=== PATIENT | female | born 1985 | race American Indian/Alaskan Native ===

== ENCOUNTER 2019-03-22 08:38 | Emergency (ER) | payer BC ==
--- NOTE | 2019-03-22 10:41 | Emergency Department Report ---
Chief Complaint: Extremity Injury, Lower Stated Complaint: RT FOOT/TOE PAIN SORE Time Seen by Provider: 03/22/19 10:35 - HPI History of Present Illness: Ms. Mead has ulcer in between her toes. I recommended outpatient evluation by behavioral health care manager. dc'd with referral. MSE performed and completed. No emergent medical condition exists which needs further treatment and evaluation. - Exam Vital Signs: Vital Signs 03/22/19 09:14 Temperature 98.5 F Pulse Rate 95 H Respiratory 16 Rate Blood Pressure 157/107 O2 Sat by Pulse 100 Oximetry MSE screening note: Focused history and physical exam performed. Due to findings the following was ordered: ED Disposition for MSE Clinical Impression: Foot ulcer, Tinea pedis Disposition: Z MED SCREENING EXAM-LEFT Is pt being admited?: No Does the pt Need Aspirin: No Condition: Stable Instructions: Tinea Pedis (ED) Additional Instructions: Use Lamisil as discussed Referrals: ALEXANDER SIERRA DPM [Staff Physician] - 3-5 Days JODEE BARNETT MD [Staff Physician] - 3-5 Days Forms: Work/School Release Form(ED)
[2019-03-22] MEDS ORDERED: TRIPLE ANTIBIOTIC TP ONE (10:44)
[2019-03-22 10:50] VITALS: BP 150/100
[2019-03-22] MEDS ORDERED: ANTIBIOTIC OINT TP ONE (11:37)
== END 2019-03-22 10:50 | disposition left against medical advice (07) ==
LOC: ED 08:38
DX: L97.519 Non-pressure chronic ulcer of other part of right foot with unspecified severity (principal); B35.3 Tinea pedis
CPT/HCPCS: 99282; A6250

== ENCOUNTER 2019-09-28 19:21 | Emergency (ER) | payer BC ==
--- NOTE | 2019-09-28 22:53 | XRay Report ---
CHEST 2 VIEWS INDICATION / CLINICAL INFORMATION: cough. COMPARISON: None available. FINDINGS: SUPPORT DEVICES: None. HEART / MEDIASTINUM: No significant abnormality. LUNGS / PLEURA: No significant pulmonary or pleural abnormality. No pneumothorax. ADDITIONAL FINDINGS: No significant additional findings. IMPRESSION: No acute finding. Signer Name: Milton Hay MD Signed: 09/28/2019 10:48 PM Workstation Name: [id number]
[2019-09-29] MEDS ORDERED: BENZONATATE 100 MG CAP PO ONE (00:41)
--- NOTE | 2019-09-29 01:10 | Emergency Department Report ---
Minor Respiratory - HPI Chief Complaint: Upper Respiratory Infection Stated Complaint: COUGH/NOSE BLEED Time Seen by Provider: 09/28/19 23:55 Duration: 3 Days Severity: mild Minor Respiratory: Yes Rhinorrhea, Yes Able to Tolerate Fluids, Yes Cough, Yes Fever, No Sore Throat, No Ear Pain, No Sick Contacts, No Hemoptysis, No Chest Pain, No Shortness of Breath Other History: This is a 34-year-old -[place] female who presents to the emergency room with cough and body aches for 3 days. Patient states she is taken Tylenol and TheraFlu with no change in symptoms. Reports worsening cough during the day and resolves when she falls asleep at night. Denies prior medical history. ED Review of Systems ROS: Stated complaint: COUGH/NOSE BLEED Other details as noted in HPI Constitutional: chills, fever ENT: congestion. denies: ear pain, throat pain Respiratory: cough. denies: shortness of breath, wheezing Cardiovascular: denies: chest pain, palpitations Gastrointestinal: denies: abdominal pain, nausea, diarrhea Musculoskeletal: myalgia. denies: back pain, joint swelling, arthralgia Skin: denies: rash, lesions Neurological: denies: headache, weakness, paresthesias Psychiatric: denies: anxiety, depression ED Past Medical Hx - Past Medical History Previous Medical History?: No Additional medical history: Obesity - Surgical History Past Surgical History?: Yes Additional Surgical History: x 2. right foot surgery - Social History Smoking Status: Never Smoker Substance Use Type: None - Medications Home Medications: Home Medications Medication Instructions Recorded Confirmed Last Taken Type Amoxicillin 500 mg PO BID #20 capsule 07/20/18 Unknown Rx methylPREDNISolone [Medrol] 4 mg PO DAILY #1 tab.ds.pk 07/20/18 Unknown Rx Benzonatate [Tessalon Perles] 100 mg PO Q8HR PRN #20 capsule 09/29/19 Unknown Rx Cetirizine HCl [ZyrTEC 10mg cap] 10 mg PO DAILY #30 capsule 09/29/19 Unknown Rx Fluticasone [Flonase] 1 spray NS QDAY #1 bottle 09/29/19 Unknown Rx Minor Respiratory Exam - Exam General: Vital signs noted. No distress. Alert and acting appropriately. HEENT: Yes Pharyngeal Erythema (Erythematous posterior pharynx, uvula midline), Yes Moist Mucous Membranes, Yes Rhinorrhea (Turbinates congested with clear discharge), No Pharyngeal Exudates, No Conjuctival Injection, No Frontal Tenderness, No Maxillary Tenderness Ear: Neither TM Bulge, Neither TM Erythema, Neither EAC Pain, Neither EAC Discharge Neck: Yes Supple, No Adenopathy Lungs: Yes Good Air Exchange, No Wheezes, No Ronchi, No Stridor, No Cough, No Labored Respirations, No Retractions, No Use of Accessory Muscles, No Other Abnormal Lung Sounds Heart: Yes Regular, No Murmur Abdomen: Yes Normal Bowel Sounds, No Tenderness, No Peritoneal Signs Skin: No Rash, No Edema Neurologic: Alert and oriented, no deficits. Musculoskeletal: Unremarkable. ED Course Vital Signs 09/28/19 22:13 Temperature 99.3 F Pulse Rate 104 H Respiratory 20 Rate Blood Pressure 145/108 O2 Sat by Pulse 100 Oximetry Vital Signs 09/28/19 09/29/19 22:13 01:18 Temperature 99.3 F 98.7 F Pulse Rate 104 H 97 H Respiratory 20 18 Rate Blood Pressure 145/108 Blood Pressure 126/88 [Left] O2 Sat by Pulse 100 100 Oximetry ED Medical Decision Making - Radiology Data Radiology results: report reviewed CHEST 2 VIEWS INDICATION / CLINICAL INFORMATION: cough. COMPARISON: None available. FINDINGS: SUPPORT DEVICES: None. HEART / MEDIASTINUM: No significant abnormality. LUNGS / PLEURA: No significant pulmonary or pleural abnormality. No pneumothorax. ADDITIONAL FINDINGS: No significant additional findings. IMPRESSION: No acute finding. - Medical Decision Making This is a 34-year-old -[place] female that presents to the emergency room with cough and body aches for 3 days. Vitals are stable and patient in no acute distress. Chest xray has been obtained and negative for acute cardiopulmonary findings. Labs deferred at this time. Patient will be treated for upper respiratory infection with symptomatic medication. Start benzonatate, Flonase, and antihistamines. Discharged home stable. Follow up with Primary Care Provider in 2-3 days. Patient given strict return instructions. Critical care attestation.: If time is entered above; I have spent that time in minutes in the direct care of this critically ill patient, excluding procedure time. ED Disposition Clinical Impression: Cough Upper respiratory infection Qualifiers: URI type: acute nasopharyngitis (common cold) Qualified Code(s): J00 - Acute nasopharyngitis [common cold] Disposition: TO HOME OR SELFCARE Is pt being admited?: No Condition: Stable Instructions: Upper Respiratory Infection (ED), Cold Symptoms (ED) Additional Instructions: Increase fluid intake and rest. Wash hands frequently. Continue taking Tylenol or ibuprofen to control fever. F/U with Primary Care Provider. Return to ER if fever, SOB, or difficulty breathing after 48 hours of supportive care. Prescriptions: Fluticasone [Flonase] 1 spray NS QDAY #1 bottle Benzonatate [Tessalon Perles] 100 mg PO Q8HR PRN #20 capsule PRN Reason: Cough Cetirizine HCl [ZyrTEC 10mg cap] 10 mg PO DAILY #30 capsule Referrals: EUN ALMENDAREZ MD [Primary Care Provider] - 3-5 Days [facility] [Outside] - 3-5 Days [facility] [Outside] - 3-5 Days Forms: Work/School Release Form(ED) Time of Disposition: 01:18
[2019-09-29 01:19] VITALS: BP 126/88
== END 2019-09-29 01:24 | disposition home or self-care (01) ==
LOC: ED 19:21
DX: J06.9 Acute upper respiratory infection, unspecified (principal); R52 Pain, unspecified; E66.9 Obesity, unspecified; Z68.42 Body mass index [BMI] 45.0-49.9, adult; Z98.890 Other specified postprocedural states; Z79.899 Other long term (current) drug therapy
CPT/HCPCS: 71046

== ENCOUNTER 2020-09-24 19:11 | Emergency (ER) | payer SELFPAY ==
--- NOTE | 2020-09-24 20:21 | Emergency Department Report ---
ED Headache HPI - General Chief Complaint: Headache Stated Complaint: HEADACHE FOR 5 DAYS Time Seen by Provider: 09/24/20 19:59 - History of Present Illness Initial Comments: 35-year-old female with past medical history of hypertension presents emerge department complaining of a 5-day history of a nonprogressing but nonresolving headache with association photophobia and phonophobia. She reports no known scotomas preceding the preceding the headache but laal-jhm-lykeand treatments has not been successful. Timing/Duration: constant, other (For the last 5 days) Quality: moderate, severe Head Injury Location: frontal, parietal Recent Head Trauma: occasional headaches Modifying Factors: improves with: exposure to light Associated Symptoms: denies: facial pain, fever/chills, flushing, nausea/vomiting, nasal congestion, nasal drainage, numbness in legs/feet, sinus infection, stiff neck, vision changes Allergies/Adverse Reactions: Allergies No Known Allergies Allergy (Verified 08/25/14 08:09) Home Medications: Ambulatory Orders Amoxicillin 500 mg PO BID #20 capsule 07/20/18 methylPREDNISolone [Medrol] 4 mg PO DAILY #1 tab.ds.pk 07/20/18 Benzonatate [Tessalon Perles] 100 mg PO Q8HR PRN #20 capsule 09/29/19 Cetirizine HCl [ZyrTEC 10mg cap] 10 mg PO DAILY #30 capsule 09/29/19 Fluticasone [Flonase] 1 spray NS QDAY #1 bottle 09/29/19 ED Review of Systems ROS: Stated complaint: HEADACHE FOR 5 DAYS Other details as noted in HPI Comment: All other systems reviewed and negative ED Past Medical Hx - Past Medical History Previous Medical History?: No Additional medical history: Obesity - Surgical History Past Surgical History?: Yes Additional Surgical History: x 2. right foot surgery - Social History Smoking Status: Never Smoker Substance Use Type: None - Medications Home Medications: Home Medications Medication Instructions Recorded Confirmed Last Taken Type Amoxicillin 500 mg PO BID #20 capsule 07/20/18 Unknown Rx methylPREDNISolone [Medrol] 4 mg PO DAILY #1 tab.ds.pk 07/20/18 Unknown Rx Benzonatate [Tessalon Perles] 100 mg PO Q8HR PRN #20 capsule 09/29/19 Unknown Rx Cetirizine HCl [ZyrTEC 10mg cap] 10 mg PO DAILY #30 capsule 09/29/19 Unknown Rx Fluticasone [Flonase] 1 spray NS QDAY #1 bottle 09/29/19 Unknown Rx ED Physical Exam - General Limitations: No Limitations General appearance: alert, in no apparent distress - Head Head exam: Present: atraumatic, normocephalic - Eye Eye exam: Present: normal appearance, PERRL, EOMI. Absent: nystagmus Pupils: Present: other (Negative funduscopic examination) - ENT ENT exam: Present: normal exam, normal orophraynx, mucous membranes moist - Neck Neck exam: Present: normal inspection, full ROM. Absent: tenderness, meningismus, lymphadenopathy - Respiratory Respiratory exam: Present: normal lung sounds bilaterally. Absent: respiratory distress - Cardiovascular Cardiovascular Exam: Present: regular rate, normal rhythm. Absent: systolic murmur, diastolic murmur, rubs, gallop - GI/Abdominal GI/Abdominal exam: Present: soft, normal bowel sounds - Extremities Exam Extremities exam: Present: normal inspection - Back Exam Back exam: Present: normal inspection - Neurological Exam Neurological exam: Present: alert, oriented X3 - Psychiatric Psychiatric exam: Present: normal affect, normal mood - Skin Skin exam: Present: warm, dry, intact, normal color. Absent: rash ED Course Vital Signs 09/24/20 19:51 Temperature 99.2 F Pulse Rate 98 H Respiratory 19 Rate Blood Pressure 183/113 O2 Sat by Pulse 100 Oximetry Critical care attestation.: If time is entered above; I have spent that time in minutes in the direct care of this critically ill patient, excluding procedure time. ED Disposition Condition: Stable
[2020-09-24 20:23] LABS: Hematocrit 37.3 % (30.3-42.9); Mean Corpuscular HGB Conc 35 % (30-34); Mean Corpuscular Volume 90 fl (79-97); Platelet Count 406 K/mm3 (140-440); Red Blood Count 4.12 M/mm3 (3.65-5.03); Red Cell Distribution Width 15.1 % (13.2-15.2)
[2020-09-24 20:34] LABS: Blood Urea Nitrogen 14 mg/dL (7-17); Calcium 9.4 mg/dL (8.4-10.2); Hemolysis Index 15
[2020-09-24 20:37] LABS: BUN/Creatinine Ratio 20
[2020-09-24 21:00] LABS: Total Cells Counted 100
[2020-09-24 21:02] LABS: RBC Morphology Normal
--- NOTE | 2020-09-24 21:54 | Cat Scan Report ---
CT HEAD WITHOUT CONTRAST INDICATION / CLINICAL INFORMATION: headache x 5 days, htn. TECHNIQUE: All CT scans at this location are performed using CT dose reduction for ALARA by means of automated e xposure control. COMPARISON: None available. FINDINGS: HEMORRHAGE: None. EXTRA-AXIAL SPACES: Normal in size and morphology for the patient's age. VENTRICULAR SYSTEM: Normal in size and morphology for the patient's age. CEREBRAL PARENCHYMA: No significant abnormality. No acute territorial infarct. MIDLINE SHIFT OR HERNIATION: None. CEREBELLUM / BRAINSTEM: No significant abnormality. ORBITS: Normal as visualized. SOFT TISSUES of HEAD: No significant abnormality. CALVARIUM: No significant abnormality. PARANASAL SINUSES / MASTOID AIR CELLS: Normal as visualized. ADDITIONAL FINDINGS: None. IMPRESSION: 1. No acute intracranial abnormality. Signer Name: Jimmy Mccoy MD Signed: 09/24/2020 9:49 PM Workstation Name: [id number]
[2020-09-24] MEDS ORDERED: KETOROLAC 30 MG/1 ML INJ IV STA (23:13)
[2020-09-24] MEDS ORDERED: diphenhydrAMINE 50 MG/ML VIAL IV STA (23:13)
[2020-09-25 00:40] VITALS: BP 150/101
== END 2020-09-25 01:27 | disposition home or self-care (01) ==
LOC: ED 19:11
DX: R51.9 Headache, unspecified (principal); I10 Essential (primary) hypertension; E66.9 Obesity, unspecified; Z68.41 Body mass index [BMI] 40.0-44.9, adult; Z79.899 Other long term (current) drug therapy; Z98.890 Other specified postprocedural states
CPT/HCPCS: 36415; 70450; 80048; 84703; 85007; 85025; 96374; 96375; 99284; J1200; J1885

== ENCOUNTER 2021-01-28 16:54 | Emergency (ER) | payer BC ==
[2021-01-28 17:26] VITALS: BP 129/90
--- NOTE | 2021-01-28 18:03 | XRay Report ---
CHEST 2 VIEWS INDICATION / CLINICAL INFORMATION: cough. COMPARISON: Chest x-ray 09/28/2019 FINDINGS: SUPPORT DEVICES: None. HEART / MEDIASTINUM: No significant abnormality. LUNGS / PLEURA: No significant pulmonary or pleural abnormality. No pneumothorax. ADDITIONAL FINDINGS: No significant additional findings. IMPRESSION: 1. No acute findings. Signer Name: Mark Anthony Rivera MD Signed: 01/28/2021 5:58 PM Workstation Name: [id number]
[2021-01-28] MEDS ORDERED: ACETAMINOPHEN 500 MG TAB PO ONE (20:18)
[2021-01-28] MEDS ORDERED: predniSONE 20 MG TAB PO ONE (20:18)
--- NOTE | 2021-01-28 20:23 | Emergency Department Report ---
- General Chief Complaint: Dyspnea/Respdistress Stated Complaint: COUGH/HEADACHE/RUNNYNOSE/NO TASTE Source: patient Mode of arrival: Ambulatory Limitations: No Limitations - History of Present Illness Initial Comments: Patient is a 35-year-old -[place]ian female with a history of hypertension who presents to the ED with complaint of acute onset persistent nasal and sinus congestion, frontal sinus pressure and headache, persistent dry cough with diffuse body aches and pains, lack of appetite and generalized fatigue and weakness for the last 4 days. Patient states that no one else at home has had similar symptoms. [place] exposed to someone with similar symptoms. Patient denies dizziness, syncope, fever, chills, nausea, vomiting, diarrhea, abdominal pain, chest pain, shortness of breath, change in vision or sore throat. MD Complaint: cough, rhinorrhea, nasal congestion, sinus pain, other (Frontal sinus pressure and headache) -: Sudden, days(s) (4) Severity: moderate Severity scale (0 -10): 5 Quality: sharp, aching Consistency: constant Improves With: nothing Worsens With: nothing Context: sick contacts Associated Symptoms: denies other symptoms, myalgias, headache, rhinorrhea, nasal congestion, cough. denies: fever, chills, diaphoresis, sore throat, stiff neck, chest pain, shortness of breath, abdominal pain, nausea, vomiting, diarrhea, dysuria, rash, confusion, right sweats, weight loss, epistaxis Treatments Prior to Arrival: "cold medicine" - Related Data Previous Rx's Medication Instructions Recorded Last Taken Type Amoxicillin 500 mg PO BID #20 capsule 07/20/18 Unknown Rx methylPREDNISolone [Medrol] 4 mg PO DAILY #1 tab.ds.pk 07/20/18 Unknown Rx Fluticasone [Flonase] 1 spray NS QDAY #1 bottle 09/29/19 Unknown Rx Butalb/Acetaminophen/Caffeine 1 cap PO Q8HR PRN #20 cap 09/25/20 Unknown Rx [Fioricet 50-300-40 mg CAP] Azithromycin [Zithromax Z-ADELA] 250 mg PO DAILY #6 tablet 01/28/21 Unknown Rx Benzonatate [Tessalon Perles] 100 mg PO Q8HR PRN #30 capsule 01/28/21 Unknown Rx Cetirizine HCl [ZyrTEC 10mg cap] 10 mg PO DAILY #30 capsule 01/28/21 Unknown Rx Ibuprofen [Motrin] 600 mg PO Q8H PRN #30 tablet 01/28/21 Unknown Rx predniSONE [Deltasone] 40 mg PO QDAY #10 tab 01/28/21 Unknown Rx Allergies Allergy/AdvReac Type Severity Reaction Status Date / Time No Known Allergies Allergy Verified 08/25/14 08:09 ED Review of Systems ROS: Stated complaint: COUGH/HEADACHE/RUNNYNOSE/NO TASTE Other details as noted in HPI Constitutional: denies: chills, fever Eyes: denies: eye pain, eye discharge, vision change ENT: throat pain, congestion, other (Frontal sinus pressure). denies: ear pain Respiratory: cough (Persistent dry cough). denies: shortness of breath, wheezing Cardiovascular: denies: chest pain, palpitations Endocrine: no symptoms reported Gastrointestinal: denies: abdominal pain, nausea, diarrhea Genitourinary: denies: urgency, dysuria, discharge Musculoskeletal: arthralgia, myalgia. denies: back pain, joint swelling Skin: denies: rash, lesions Neurological: denies: headache, weakness, paresthesias Psychiatric: denies: anxiety, depression Hematological/Lymphatic: denies: easy bleeding, easy bruising ED Past Medical Hx - Past Medical History Previous Medical History?: Yes Hx Hypertension: Yes Additional medical history: Obesity - Surgical History Past Surgical History?: Yes Additional Surgical History: x 2. right foot surgery - Social History Smoking Status: Never Smoker Substance Use Type: None - Medications Home Medications: Home Medications Medication Instructions Recorded Confirmed Last Taken Type Amoxicillin 500 mg PO BID #20 capsule 07/20/18 Unknown Rx methylPREDNISolone [Medrol] 4 mg PO DAILY #1 tab.ds.pk 07/20/18 Unknown Rx Fluticasone [Flonase] 1 spray NS QDAY #1 bottle 09/29/19 Unknown Rx Butalb/Acetaminophen/Caffeine 1 cap PO Q8HR PRN #20 cap 09/25/20 Unknown Rx [Fioricet 50-300-40 mg CAP] Azithromycin [Zithromax Z-ADELA] 250 mg PO DAILY #6 tablet 01/28/21 Unknown Rx Benzonatate [Tessalon Perles] 100 mg PO Q8HR PRN #30 capsule 01/28/21 Unknown Rx Cetirizine HCl [ZyrTEC 10mg cap] 10 mg PO DAILY #30 capsule 01/28/21 Unknown Rx Ibuprofen [Motrin] 600 mg PO Q8H PRN #30 tablet 01/28/21 Unknown Rx predniSONE [Deltasone] 40 mg PO QDAY #10 tab 01/28/21 Unknown Rx ED Physical Exam - General Limitations: No Limitations General appearance: alert, in no apparent distress - Head Head exam: Present: atraumatic, normocephalic, normal inspection - Eye Eye exam: Present: normal appearance, PERRL, EOMI Pupils: Present: normal accommodation - ENT ENT exam: Present: normal orophraynx, mucous membranes moist, TM's normal bilaterally, normal external ear exam, other (Palpable frontal and maxillary sinus tenderness; grossly congested nasal passages) - Neck Neck exam: Present: normal inspection, full ROM. Absent: tenderness, lymphadenopathy - Respiratory Respiratory exam: Present: normal lung sounds bilaterally. Absent: respiratory distress, wheezes, rhonchi, chest wall tenderness, accessory muscle use, prolonged expiratory - Cardiovascular Cardiovascular Exam: Present: regular rate, normal rhythm, normal heart sounds. Absent: systolic murmur, diastolic murmur, rubs, gallop - GI/Abdominal GI/Abdominal exam: Present: soft, normal bowel sounds. Absent: tenderness, guarding, rebound, hyperactive bowel sounds, hypoactive bowel sounds, organomegaly - Extremities Exam Extremities exam: Present: normal inspection, full ROM, normal capillary refill - Back Exam Back exam: Present: normal inspection, full ROM. Absent: tenderness, CVA tenderness (R), CVA tenderness (L), muscle spasm, paraspinal tenderness, vertebral tenderness - Neurological Exam Neurological exam: Present: alert, oriented X3, CN II-XII intact, normal gait, reflexes normal - Psychiatric Psychiatric exam: Present: normal affect, normal mood - Skin Skin exam: Present: warm, dry, intact, normal color. Absent: rash ED Course Vital Signs 01/28/21 17:25 Temperature 98.9 F Pulse Rate 98 H Respiratory 13 Rate Blood Pressure 129/90 O2 Sat by Pulse 100 Oximetry ED Medical Decision Making - Radiology Data Radiology results: report reviewed, image reviewed [facility] [address] [place] [address] XRay Report Signed Patient: SILVIO ZHOU MR#: [id number] : 1985 Acct:[id number] Age/Sex: 35 / F ADM Date: 01/28/21 Loc: ED Attending Dr: Ordering Physician: PADMINI MELLO Date of Service: 01/28/21 Procedure(s): XR chest routine 2V Accession Number(s): [id number] cc: PADMINI MELLO Fluoro Time In Minutes: CHEST 2 VIEWS INDICATION / CLINICAL INFORMATION: cough. COMPARISON: Chest x-ray 09/28/2019 FINDINGS: SUPPORT DEVICES: None. HEART / MEDIASTINUM: No significant abnormality. LUNGS / PLEURA: No significant pulmonary or pleural abnormality. No pneumothorax. ADDITIONAL FINDINGS: No significant additional findings. IMPRESSION: 1. No acute findings. Signer Name: Mark Anthony Rivera MD Signed: 01/28/2021 5:58 PM Workstation Name: [id number] Transcribed By: TL Dictated By: Mark Anthony Rivera MD Electronically Authenticated By: Mark Anthony Rivera MD Signed Date/Time: 01/28/211757 DD/ 57 TD/TT: - Medical Decision Making This is a 37-year-old -[place]ian male with a history of seizures who presents to the ED with complaint of acute onset persistent painful swollen left maxillary gingiva and premolar molar toothache for the last 3 days. Patient states that the symptoms got worse in the last 24 hours such that he has not been able to sleep or eat anything because of worsening pain. Patient states that he has been taking [id number] pain medications with no relief. In the ED, patient is alert and oriented x3 and is not in any distress. Chest x- ray shows no acute cardiopulmonary abnormalities or pneumonitis. Patient was therefore discharged home on medications and advised to follow-up with his primary care physician in 5 to 7 days for reevaluation. Patient was advised return to the ED immediately if symptoms get worse. - Differential Diagnosis Sinusitis; URI; bronchitis; pneumonia; COVID-19 Critical care attestation.: If time is entered above; I have spent that time in minutes in the direct care of this critically ill patient, excluding procedure time. ED Disposition Clinical Impression: Acute upper respiratory infection Acute frontal sinusitis, unspecified Qualifiers: Recurrence: non-recurrent Qualified Code(s): J01.10 - Acute frontal sinusitis, unspecified Acute bronchitis Qualifiers: Bronchitis organism: unspecified organism Qualified Code(s): J20.9 - Acute bronchitis, unspecified Disposition: DC-01 TO HOME OR SELFCARE Is pt being admited?: No Does the pt Need Aspirin: No Condition: Stable Instructions: Cough, Adult, [id number], Sinusitis, Adult, [id number], Acute Bronchitis, Adult, [id number], Upper Respiratory Infection, Adult, Ispq-[id number], Acute Bronchitis (ED) Additional Instructions: The chest x-ray shows no acute cardiopulmonary abnormalities or pneumonitis. Your symptoms are likely due to acute frontal sinusitis and upper respiratory infection complicated by bronchitis. Therefore take medication with food, drink plenty of fluids and follow-up with your primary care physician in 5 to 7 days for reevaluation. Return to the ED immediately if symptoms get worse. Prescriptions: predniSONE [Deltasone] 40 mg PO QDAY #10 tab Ibuprofen [Motrin] 600 mg PO Q8H PRN #30 tablet PRN Reason: Pain Benzonatate [Tessalon Perles] 100 mg PO Q8HR PRN #30 capsule PRN Reason: Cough Azithromycin [Zithromax Z-ADELA] 250 mg PO DAILY #6 tablet Cetirizine HCl [ZyrTEC 10mg cap] 10 mg PO DAILY #30 capsule Referrals: [facility] [Provider Group] - 3-5 Days Forms: Work/School Release Form(ED) Time of Disposition: 20:21 Print Language: AMHARIC
== END 2021-01-28 20:38 | disposition home or self-care (01) ==
LOC: ED 16:54
DX: J06.9 Acute upper respiratory infection, unspecified (principal); J01.10 Acute frontal sinusitis, unspecified; J20.9 Acute bronchitis, unspecified; I10 Essential (primary) hypertension; E66.01 Morbid (severe) obesity due to excess calories; Z79.899 Other long term (current) drug therapy; Z98.890 Other specified postprocedural states; Z68.41 Body mass index [BMI] 40.0-44.9, adult
CPT/HCPCS: 71046; 99283; J7512

== ENCOUNTER 2021-08-13 17:10 | Emergency (ER) | payer BC, OTHER ==
[2021-08-13 20:52] VITALS: BP 147/103
--- NOTE | 2021-08-13 23:08 | Emergency Department Report ---
- General Chief Complaint: Upper Respiratory Infection Stated Complaint: FLU/COVID SYMPTOMS Time Seen by Provider: 08/13/21 22:16 Source: patient Mode of arrival: Ambulatory Limitations: No Limitations - History of Present Illness Initial Comments: 36-year-old [place] female Amaris emerged from complaining of a few day history of progressive worsening cough cannot congestion coryza with left ear pressure and pain. Reports having some fatigue muscle aches sinus pressure loss of taste and smell and no known contact with coronavirus. Reports no diarrhea. No hemoptysis no hematemesis hematochezia. No fevers or sweats MD Complaint: cough, sore throat, rhinorrhea -: Gradual Severity: mild, moderate Quality: dull Consistency: constant - Related Data Previous Rx's Medication Instructions Recorded Last Taken Type Amoxicillin 500 mg PO BID #20 capsule 07/20/18 Unknown Rx methylPREDNISolone [Medrol] 4 mg PO DAILY #1 tab.ds.pk 07/20/18 Unknown Rx Fluticasone [Flonase] 1 spray NS QDAY #1 bottle 09/29/19 Unknown Rx Butalb/Acetaminophen/Caffeine 1 cap PO Q8HR PRN #20 cap 09/25/20 Unknown Rx [Fioricet 50-300-40 mg CAP] Azithromycin [Zithromax Z-ADELA] 250 mg PO DAILY #6 tablet 01/28/21 Unknown Rx Benzonatate [Tessalon Perles] 100 mg PO Q8HR PRN #30 capsule 01/28/21 Unknown Rx Cetirizine HCl [ZyrTEC 10mg cap] 10 mg PO DAILY #30 capsule 01/28/21 Unknown Rx Ibuprofen [Motrin] 600 mg PO Q8H PRN #30 tablet 01/28/21 Unknown Rx predniSONE [Deltasone] 40 mg PO QDAY #10 tab 01/28/21 Unknown Rx Ketorolac [Toradol] 10 mg PO Q6H PRN #10 tab 08/13/21 Unknown Rx Allergies Allergy/AdvReac Type Severity Reaction Status Date / Time No Known Allergies Allergy Verified 08/25/14 08:09 ED Review of Systems ROS: Stated complaint: FLU/COVID SYMPTOMS Other details as noted in HPI Comment: All other systems reviewed and negative ED Past Medical Hx - Past Medical History Previous Medical History?: Yes Hx Hypertension: Yes Hx Arthritis: Yes Additional medical history: Obesity - Surgical History Past Surgical History?: Yes Additional Surgical History: x 2. right foot surgery - Social History Smoking Status: Never Smoker Substance Use Type: None - Medications Home Medications: Home Medications Medication Instructions Recorded Confirmed Last Taken Type Amoxicillin 500 mg PO BID #20 capsule 07/20/18 Unknown Rx methylPREDNISolone [Medrol] 4 mg PO DAILY #1 tab.ds.pk 07/20/18 Unknown Rx Fluticasone [Flonase] 1 spray NS QDAY #1 bottle 09/29/19 Unknown Rx Butalb/Acetaminophen/Caffeine 1 cap PO Q8HR PRN #20 cap 09/25/20 Unknown Rx [Fioricet 50-300-40 mg CAP] Azithromycin [Zithromax Z-ADELA] 250 mg PO DAILY #6 tablet 01/28/21 Unknown Rx Benzonatate [Tessalon Perles] 100 mg PO Q8HR PRN #30 capsule 01/28/21 Unknown Rx Cetirizine HCl [ZyrTEC 10mg cap] 10 mg PO DAILY #30 capsule 01/28/21 Unknown Rx Ibuprofen [Motrin] 600 mg PO Q8H PRN #30 tablet 01/28/21 Unknown Rx predniSONE [Deltasone] 40 mg PO QDAY #10 tab 01/28/21 Unknown Rx Ketorolac [Toradol] 10 mg PO Q6H PRN #10 tab 08/13/21 Unknown Rx ED Physical Exam - General Limitations: No Limitations General appearance: alert, in no apparent distress - Head Head exam: Present: atraumatic, normocephalic - Eye Eye exam: Present: normal appearance, PERRL, EOMI Pupils: Present: normal accommodation - ENT ENT exam: Present: normal exam, normal orophraynx, mucous membranes dry (Clear nasal discharge noted.), mucous membranes moist, other (Wound to the left pinna membrane. Small effusion noted. Normal ear canal). Absent: TM's normal bilaterally - Neck Neck exam: Present: normal inspection, full ROM - Respiratory Respiratory exam: Present: normal lung sounds bilaterally. Absent: respiratory distress, wheezes, rales, accessory muscle use, decreased breath sounds - Cardiovascular Cardiovascular Exam: Present: regular rate, normal rhythm. Absent: systolic murmur, diastolic murmur, rubs, gallop - GI/Abdominal GI/Abdominal exam: Present: soft, normal bowel sounds. Absent: tenderness, guarding - Extremities Exam Extremities exam: Present: normal inspection - Back Exam Back exam: Present: normal inspection. Absent: CVA tenderness (R), CVA tenderness (L) - Neurological Exam Neurological exam: Present: alert, oriented X3, CN II-XII intact - Psychiatric Psychiatric exam: Present: normal affect, normal mood - Skin Skin exam: Present: warm, dry, intact, normal color. Absent: rash ED Course Vital Signs 08/13/21 20:46 Temperature 98.9 F Pulse Rate 95 H Respiratory 17 Rate Blood Pressure 147/103 O2 Sat by Pulse 100 Oximetry Critical care attestation.: If time is entered above; I have spent that time in minutes in the direct care of this critically ill patient, excluding procedure time. ED Disposition Clinical Impression: Viral respiratory illness Disposition: HOME / SELF CARE / HOMELESS Is pt being admited?: No Does the pt Need Aspirin: No Condition: Stable Instructions: Viral Respiratory Infection, Viral Illness, Adult, COVID-19, COVID-19, Prevent the Spread of COVID-19 if You Are Sick - CDC, Viral Respiratory Infection Test, Infection Prevention in the Home Additional Instructions: This 36 patient presents with symptoms suspicious for likely viral upper respiratory tract infection. Differential includes bacterial pneumonia, sinusitis, allergic rhinitis, COVID-19. Do not suspect underlying Cardiopulmonary process. I considered but think unlikely dangerous cause of this patient symptoms to include acute coronary syndrome, CHF or COPD exacerbati ons, pneumonia, pneumothorax. Patient is nontoxic appearing and not in need of emergent medical intervention. Plan: Reassurance, reassessment, [id number] medications, discharge with PCP follow-up and recommend COVID-19 testing Prescriptions: Ketorolac [Toradol] 10 mg PO Q6H PRN #10 tab PRN Reason: Pain Referrals: PRIMARY CARE, [Primary Care Provider] - 3-5 Days [facility] [Provider Group] - 3-5 Days
== END 2021-08-14 00:54 | disposition home or self-care (01) ==
LOC: ED 17:10
DX: B34.9 Viral infection, unspecified (principal); I10 Essential (primary) hypertension; M19.90 Unspecified osteoarthritis, unspecified site; E66.9 Obesity, unspecified; Z98.890 Other specified postprocedural states
CPT/HCPCS: 99282

== ENCOUNTER 2021-11-24 08:08 | Emergency (ER) | payer OTHER ==
[2021-11-24] MEDS ORDERED: KETOROLAC 60 MG/2 ML INJ IM ONE (09:31)
--- NOTE | 2021-11-24 09:38 | Emergency Department Report ---
ED Back Pain/Injury HPI - General Chief Complaint: Back Pain/Injury Stated Complaint: LOWER PAIN Time Seen by Provider: 11/24/21 09:30 Source: patient Limitations: No Limitations - History of Present Illness Initial Comments: 36 y/o morbid obese female comes in for a 3 day history of lower back pain. Denies any injuries. Has been working 12 hours on her feet at the [employer]. Complaint: back pain Onset/Timin -: days(s) Similar Symptoms Previously: No Severity: severe Severity scale (0 -10): 9 Quality: sharp, stabbing, crushing Consistency: constant Improves With: none Worsens With: movement, supine, sitting upright, walking Associated Symptoms: denies: chest pain, difficulty walking, cough, difficulty urinating, diaphoresis, incontinence, fever/chills, constipation, headaches, loss of appetite, shortness of breath - Related Data Previous Rx's Medication Instructions Recorded Last Taken Type Amoxicillin 500 mg PO BID #20 capsule 07/20/18 Unknown Rx methylPREDNISolone [Medrol] 4 mg PO DAILY #1 tab.ds.pk 07/20/18 Unknown Rx Fluticasone [Flonase] 1 spray NS QDAY #1 bottle 09/29/19 Unknown Rx Butalb/Acetaminophen/Caffeine 1 cap PO Q8HR PRN #20 cap 09/25/20 Unknown Rx [Fioricet 50-300-40 mg CAP] Azithromycin [Zithromax Z-ADEAL] 250 mg PO DAILY #6 tablet 01/28/21 Unknown Rx Benzonatate [Tessalon Perles] 100 mg PO Q8HR PRN #30 capsule 01/28/21 Unknown Rx Cetirizine HCl [ZyrTEC 10mg cap] 10 mg PO DAILY #30 capsule 01/28/21 Unknown Rx Ibuprofen [Motrin] 600 mg PO Q8H PRN #30 tablet 01/28/21 Unknown Rx predniSONE [Deltasone] 40 mg PO QDAY #10 tab 01/28/21 Unknown Rx Ketorolac [Toradol] 10 mg PO Q6H PRN #10 tab 08/13/21 Unknown Rx Ibuprofen [Motrin 800 MG tab] 800 mg PO Q8HR PRN #30 tablet 11/24/21 Unknown Rx methOCARBAMOL [Robaxin TAB] 750 mg PO Q8H PRN #30 tab 11/24/21 Unknown Rx Allergies Allergy/AdvReac Type Severity Reaction Status Date / Time No Known Allergies Allergy Verified 08/25/14 08:09 ED Review of Systems ROS: Stated complaint: LOWER PAIN Other details as noted in HPI Comment: All other systems reviewed and negative ED Past Medical Hx - Past Medical History Hx Hypertension: Yes Hx Arthritis: Yes Additional medical history: Obesity - Surgical History Past Surgical History?: Yes Additional Surgical History: x 2. right foot surgery - Social History Smoking Status: Never Smoker Substance Use Type: None - Medications Home Medications: Home Medications Medication Instructions Recorded Confirmed Last Taken Type Amoxicillin 500 mg PO BID #20 capsule 07/20/18 Unknown Rx methylPREDNISolone [Medrol] 4 mg PO DAILY #1 tab.ds.pk 07/20/18 Unknown Rx Fluticasone [Flonase] 1 spray NS QDAY #1 bottle 09/29/19 Unknown Rx Butalb/Acetaminophen/Caffeine 1 cap PO Q8HR PRN #20 cap 09/25/20 Unknown Rx [Fioricet 50-300-40 mg CAP] Azithromycin [Zithromax Z-ADELA] 250 mg PO DAILY #6 tablet 01/28/21 Unknown Rx Benzonatate [Tessalon Perles] 100 mg PO Q8HR PRN #30 capsule 01/28/21 Unknown Rx Cetirizine HCl [ZyrTEC 10mg cap] 10 mg PO DAILY #30 capsule 01/28/21 Unknown Rx Ibuprofen [Motrin] 600 mg PO Q8H PRN #30 tablet 01/28/21 Unknown Rx predniSONE [Deltasone] 40 mg PO QDAY #10 tab 01/28/21 Unknown Rx Ketorolac [Toradol] 10 mg PO Q6H PRN #10 tab 08/13/21 Unknown Rx Ibuprofen [Motrin 800 MG tab] 800 mg PO Q8HR PRN #30 tablet 11/24/21 Unknown Rx methOCARBAMOL [Robaxin TAB] 750 mg PO Q8H PRN #30 tab 11/24/21 Unknown Rx ED Physical Exam - General Limitations: No Limitations General appearance: alert, in no apparent distress - Head Head exam: Present: atraumatic, normocephalic - Eye Eye exam: Present: normal appearance - ENT ENT exam: Present: mucous membranes moist - Neck Neck exam: Present: normal inspection, full ROM - Respiratory Respiratory exam: Present: normal lung sounds bilaterally. Absent: respiratory distress - Cardiovascular Cardiovascular Exam: Present: regular rate, normal rhythm. Absent: systolic murmur, diastolic murmur, rubs, gallop - GI/Abdominal GI/Abdominal exam: Present: soft, normal bowel sounds - Extremities Exam Extremities exam: Present: normal inspection - Back Exam Back exam: Present: normal inspection, full ROM, tenderness, muscle spasm, paraspinal tenderness - Expanded Back Exam Expanded Back exam: Sciatic Notch Tenderness: Left, Right - Neurological Exam Neurological exam: Present: alert, oriented X3, normal gait - Psychiatric Psychiatric exam: Present: normal affect, normal mood - Skin Skin exam: Present: warm, dry, intact, normal color. Absent: rash ED Medical Decision Making - Medical Decision Making 36 y/o morbid obese female comes in for a 3 day history of lower back pain. Denies any injuries. Has been working 12 hours on her feet at the [employer]. Toradol 60mg IM. Discharge on Robaxin and Ibuprofen. Follow up with PCP. Critical care attestation.: If time is entered above; I have spent that time in minutes in the direct care of this critically ill patient, excluding procedure time. ED Disposition Clinical Impression: Acute back pain less than 4 weeks duration Disposition: 01 HOME / SELF CARE / HOMELESS Is pt being admited?: No Does the pt Need Aspirin: No Condition: Stable Instructions: Acute Back Pain, Adult Additional Instructions: Take medication as prescribed. Increase water intake. Follow up with your PCP. in 3-5 days. Prescriptions: Ibuprofen [Motrin 800 MG tab] 800 mg PO Q8HR PRN #30 tablet PRN Reason: Pain , Severe (7-10) methOCARBAMOL [Robaxin TAB] 750 mg PO Q8H PRN #30 tab PRN Reason: Muscle Spasm Referrals: PRIMARY CAREMD [Primary Care Provider] - 3-5 Days KARMEN BACK MD [Staff Physician] - 3-5 Days Forms: Work/School Release Form(ED) Time of Disposition: 09:45
== END 2021-11-24 09:56 | disposition home or self-care (01) ==
LOC: ED 08:08
DX: M54.50 Low back pain, unspecified (principal); I10 Essential (primary) hypertension; M19.90 Unspecified osteoarthritis, unspecified site; Z79.899 Other long term (current) drug therapy
CPT/HCPCS: 96372; 99282; J1885